=== PATIENT | male | born 1980 | race Caucasian/White ===

== ENCOUNTER 2019-12-15 13:57 | Emergency (ER) | payer OTHER ==
--- NOTE | 2019-12-15 14:16 | ERPHSYRPT ---
- History of Present Illness Time Seen by Provider: 12/15/19 14:16 Source: patient Exam Limitations: no limitations Physician History: The patient is a 39-year-old male with a past medical history significant for hypertension presents with a chief complaint of a cough. His cough reportedly started 7 days ago. He also endorsed having a sore throat, nasal congestion, rhinorrhea and a small amount of diarrhea that was reportedly nonbloody. His cough is been persistent since that time and he reportedly has been his work for multiple days and was requesting a work note. He endorsed having subjective fever in addition to chills but denies nausea, vomiting, eye pain, neck pain, otalgia, productive cough. He endorsed feeling short of breath whenever he is walking however at rest he feels better. He has not been taken anything for his symptoms. He was also requesting a refill on his lisinopril and has been out of this medication for the past 1-1/2 months. Associated Symptoms: shortness of breath, cough, chills, fever, No nausea, No vomiting, No abdominal pain, No diaphoresis, No chest pain, No headaches, No weakness Allergies/Adverse Reactions: No Known Drug Allergies Allergy (Unverified 12/15/19 14:16) - Review of Systems Constitutional: Fever, Chills Eyes: No Symptoms Ears, Nose, & Throat: Nose Congestion, Throat Pain, No Ear Pain, No Ear Discharge, No Nose Pain, No Nose Discharge, No Throat Swelling, No Painful Swallowing, No Stridor Respiratory: Cough, Dyspnea on Exertion (ELKINS), No Stridor, No Wheezing Cardiac: No Chest Pain, No Edema, No Palpitations Abdominal/Gastrointestinal: Diarrhea, No Abdominal Pain, No Nausea, No Vomiting Genitourinary Symptoms: No Symptoms Musculoskeletal: No Symptoms Skin: No Symptoms Neurological: No Symptoms Psychological: No Symptoms Endocrine: No Symptoms Hematologic/Lymphatic: No Symptoms Immunological/Allergic: No Symptoms All Other Systems: Reviewed and Negative - Nursing Vital Signs Nursing Vital Signs: Initial Vital Signs Temperature 99.3 F 12/15/19 14:11 Pulse Rate 102 H 12/15/19 14:11 Respiratory Rate 24 12/15/19 14:11 Blood Pressure 154/94 12/15/19 14:11 O2 Sat by Pulse Oximetry 97 12/15/19 14:11 Pain Scale Pain Intensity 2 - Physical Exam General Appearance: no apparent distress, alert Eye Exam: PERRL/EOMI, No scleral icterus, No photophobia, No EOM palsy/ anisocoria Ears, Nose, Throat Exam: TMs normal, pharynx normal, moist mucous membranes, No TM abnormal (R), No TM abnormal (L), No pharyngeal erythema, No tonsillar exudate Neck Exam: normal inspection, non-tender, supple, No JVD Respiratory Exam: normal breath sounds, airway intact Cardiovascular Exam: regular rate/rhythm, normal peripheral pulses, capillary refill <2 sec Gastrointestinal/Abdomen Exam: soft, No tenderness, No distention, No mass Extremity Exam: normal inspection, other (No asymmetric lower extremity edema, calf tenderness or erythema to suggest a DVT) Neurologic Exam: alert, oriented x 3, cooperative Skin Exam: normal color, warm, dry, No rash, No petechiae, No jaundice, No cyanosis SpO2 Interpretation: normal - Course Nursing assessment & vital signs reviewed: Yes - Radiology Exams Chest X-ray Interpretation: Reviewed by me, Other (Left infrahilar infiltrate versus atelectasis. Remaining heart lungs and bony thorax normal. I saw this on my review as well given the patient's symptoms I will treat it as a community- acquired pneumonia.) Ordered Tests: Active Orders 24 hr Category Date Time Status CHEST 2 VIEWS (PA AND LAT) Stat Exams 12/15/19 14:32 Completed Medication Summary Discontinued Medications Generic Name Dose Route Start Last Admin Trade Name Freq PRN Reason Stop Dose Admin Doxycycline Hyclate Confirm 12/15/19 15:10 Vibramycin 100 Mg Administered 12/15/19 15:11 Dose 100 mg .ROUTE .STK-MED ONE Doxycycline Hyclate 100 mg 12/15/19 15:13 12/15/19 15:14 Vibramycin 100 Mg PO 12/15/19 15:14 100 mg STAT ONE Administration - Progress Progress: unchanged Progress Note: 12/15/19 15:06 X-rays reviewed show no evidence of a left infrahilar infiltrate consistent with what appears to be pneumonia. I will have the patient ambulate on monitor his pulse oximeter reading and if he has no hypoxia or any significant increased work of breathing he will be discharged home with a prescription for doxycycline and medications for symptomatic control. 12/15/19 15:10 Ambulated and is oxygen saturations were 99% he had no significant increased work of breathing. I will give him a dose of oral doxycycline the emergency department and discharge him with prescriptions for symptomatic control in addition to antibiotics consisting of doxycycline for the next 7 days. He will also be given a work excuse for the next 48 to 72 hours. ED return precautions for pneumonia will be given. The patient is likely suffering from community- acquired pneumonia at this time and doxycycline should be sufficient antibiotic coverage given his lack of relatively severe comorbidities and overall well appearance. Counseled pt/family regarding: diagnosis, need for follow-up, rad results - Departure Departure Disposition: Home Clinical Impression: Hypertension, Community acquired pneumonia Condition: Good Critical Care Time: No Referrals: LESA VICENTE FNP [NON-STAFF PHY W/O PRIVILEGES] - Instructions: High Blood Pressure (DC), Pneumonia, Adult (DC) Additional Instructions: Follow-up with your primary care provider to have your blood pressure rechecked in the next 2 weeks. Please return if your symptoms become worse. Forms: Work/School Release Form Prescriptions: Benzonatate [Tessalon Perle] 100 mg PO [id number] PRN #30 capsule PRN Reason: Cough Albuterol 8 gm Mdi Hfa [Ventolin Hfa MDI] 90 mcg IH Q4H PRN #1 [id number] PRN Reason: Shortness Of Breath Amlodipine Besylate 5 mg [Norvasc 5 mg] 5 mg PO DAILY 30 Days #30 tablet Doxycycline Hyclate 100 mg [Vibramycin 100 MG] 100 mg PO BID #14 tab Guaifenesin 600 mg ER [Mucinex 600MG ER Tabs] 600 mg PO DAILY #30 tablet Oxymetazoline HCl Nasal [Afrin Nasal [place]] 15 ml NS BID 3 Days #1 bottle Sodium Chloride [Saline Nasal [place]] 30 ml NS BID PRN #1 spray
--- NOTE | 2019-12-15 15:01 | XRAY ---
Indication: Productive cough. Comparison: None PA/lateral chest demonstrates left infrahilar infiltrate versus atelectasis. Remaining heart, lungs, and bony thorax normal.
[2019-12-15] MEDS ORDERED: Vibramycin 100 MG ONE (15:10)
[2019-12-15 15:13] VITALS: BP 125/85; PULSE 102; O2SAT 98
[2019-12-15] MEDS ORDERED: Vibramycin 100 MG PO ONE (15:13)
== END 2019-12-15 15:27 | disposition home or self-care (01) ==
LOC: ED 13:57
DX: I10 Essential (primary) hypertension (principal); J18.9 Pneumonia, unspecified organism
CPT/HCPCS: 71046; 99283; A9270-GY